=== PATIENT | male | born 1955 | race Caucasian/White ===

== ENCOUNTER 2022-09-01 09:22 | Day surgery (SDC) | payer MEDICARE, OTHER, SELFPAY ==
--- NOTE | 2022-09-01 | PATH_ITS ---
[facility] Accession Number: [id number] No. of containers..01 Tissue . 01 Material submitted: . rectum - RECTAL POLYP . 01 Diagnosis: Rectal Polyp: Tubular adenoma. MRV 09/04/2022 1454 Local . 01 Electronically signed: . Leo Haines MD, PhD, Pathologist NPI- [id number] . 01 Gross description: . RECTAL POLYP: Received in formalin is 1 fragment(s) of dickson, soft tissue measuring 0.2 x 0.2 x 0.2 cm submitted entirely in 1 cassette(s) /TRC 09/03/2022 1431 Local . 01 Pathologist provided ICD-10: D12.8 . 01 CPT . 664587 Specimen Comment: A courtesy copy of this report has been sent to [phone] Performed at: 01 [facility] [address] [place] [address], [place], [place] [id number] MD Andrew Tejada MD Phone: [phone]
[2022-09-01 10:24] VITALS: BP 139/72; PULSE 60; RESP 16; TEMP 36.4; O2SAT 98; BMI 20.7
[2022-09-01] MEDS: LACTATED RINGERS 1,000 ML 42 ML IV (10:38)
--- NOTE | 2022-09-01 11:12 | PM.HP.1 ---
History of Present Illness History of Present Illness Date Patient Seen: 09/01/22 Time Patient Seen: 11:12 Chief complaint: SDC Narrative: Patient reports a history of colon polyps. He is here for colonoscopy today. [facility] Social History household members: spouse Smoking Status: Never smoker alcohol intake: current Meds Home Medications and Allergies Home Medications Medication Instructions Recorded Confirmed Type trazodone 100 mg tablet 100 mg PO BEDTIME 09/01/22 09/01/22 History Allergies Allergy/AdvReac Type Severity Reaction Status Date / Time No Known Drug Allergies Allergy Verified 09/01/22 10:20 Review of Systems Review of Systems ROS: Yes All systems reviewed with the patient and are negative except as otherwise documented Exam Vital Signs (past 8 hours): - 09/01/22 10:24 Temperature 97.5 F L Pulse Rate 60 Respiratory Rate 16 Blood Pressure 139/72 Pulse Oximetry 98 Oxygen Delivery Method Room Air Oxygen Flow Rate 0 Oxygen Delivery Method Room Air Oxygen Flow Rate 0 Const General: cooperative HENMT Head: normal to inspection Eyes General: appearance normal, both eyes and all related structures Neck Neck: normal visual inspection Chest Chest: normal inspection of the chest Resp Effort & Inspection: normal respiratory effort Cardio Rate: regular rate GI Inspection: normal to inspection Skin General: no rashes or lesions noted Neuro General: patient alert and patient awake Extrem General: normal to inspection and no pedal edema Psych Appearance: grossly normal Assessment & Plan Assessment & Plan narrative: 67-year-old male with a personal history of colon polyps. Colonoscopy is pursued today.
--- NOTE | 2022-09-01 11:13 | PM.PREOP ---
Pre-operative Note Interval Note History & Physical reviewed/Exam performed by Physician: Yes Changes to H&P: No ASA Class (for procedural sedation): II
[2022-09-01 12:21] VITALS: BP 112/71; PULSE 49; RESP 18; TEMP 36.7; O2SAT 99
--- NOTE | 2022-09-01 12:22 | P.OP.COLON_ITS ---
Operative Date/Time/Diagnoses Date of procedure: 09/01/22 Time of procedure: 12:23 Pre-op diagnosis: Personal history of colon polyps Post-op diagnosis: same Procedure & Clinicians Study performed: Colonoscopy with cold snare polypectomy Same procedure as scheduled: Yes Indications: Personal history of colon polyps Surgeon: Herb Marks Procedure Notes SCOAP/Timeout: Done Procedure in detail: After the risks and benefits were explained, written and verbal informed consent was obtained. The patient was brought into the procedure room and placed into the left lateral decubitus position. Please see anesthesia notes for sedation details. Digital rectal examination was accomplished. The scope was introduced into the patient and advanced under direct visualization to the cecum as identified by the appendiceal orifice and ileocecal valve. The scope was slowly withdrawn to carefully examine the mucosa for any defects or lesions. Comprehensive imaging was accomplished throughout the rectum including the den king line. The colon was decompressed, the scope was then removed from the patient who tolerated the procedure well. Pediatric colonoscope Bowel prep adequate Scope withdrawal time: 11 minutes Sedation minutes: 18 Complications: none Impression: In the rectum there was a diminutive 4 mm polyp removed with cold snare. No additional significant mucosal pathology was appreciated throughout. Grade 1-2 internal hemorrhoids were noted on direct views. Endoscopic diagnosis 1. Grade 2 hemorrhoids 2. Small rectal polyp Post-procedure Plan for aftercare: 1. Await histopathology. 2. If adenomatous features are identified, repeat colonoscopy 7 years. Disposition: PACU
[2022-09-01 12:25] VITALS: BP 124/76; PULSE 47; RESP 18; O2SAT 99
[2022-09-01 12:31] VITALS: BP 122/80; PULSE 52; RESP 16; O2SAT 99
[2022-09-01 12:40] VITALS: BP 132/78; PULSE 45; RESP 16; TEMP 36.7; O2SAT 99
== END 2022-09-01 12:46 | disposition home or self-care (01) ==
PROVIDERS: PCP Family Medicine; Referring Provider Internal Medicine Gastroenterology; Visit Provider Internal Medicine Gastroenterology
PROC: 0DJD8ZZ Inspection of Lower Intestinal Tract, Via Natural or Artificial Opening Endoscopic (ICD-10-PCS; CPT 45378; principal; 2022-09-01 13:30)
DX: Z12.11 Encounter for screening for malignant neoplasm of colon (principal); Z86.010 Personal history of colon polyps; K64.1 Second degree hemorrhoids; D12.8 Benign neoplasm of rectum
CPT/HCPCS: 45385

== ENCOUNTER → 2023-05-29 11:39 | Outpatient (CLI) | payer MEDICARE, OTHER, SELFPAY ==
--- NOTE | 2023-05-29 | DI.MRI.S_ITS ---
PROCEDURE: MR CERVICAL SPINE WO CON INDICATIONS: CERVICAL PAIN TECHNIQUE: Noncontrast sagittal T1 spin echo and T2 fast spin echo, sagittal STIR, foraminal oblique sagittal T2 fast spin echo, and axial gradient echo or T2 fast spin echo through the cervical spine. COMPARISON: None. FINDINGS: Image quality: Excellent. Alignment and Curvature: There is normal bony alignment. Bone Marrow: Marrow demonstrates normal overall signal. Spinal Cord: Visualized spinal cord has normal size and signal. No cerebellar tonsillar herniation. Paraspinous Soft Tissues: No paravertebral masses. Prevertebral soft tissues are normal in thickness. C2-C3: Disc desiccation height loss. Minimal posterior disc osteophyte complex. No central canal stenosis. Facet and uncovertebral arthropathy. Mild right and no left neural foraminal stenosis. C3-C4: Disc desiccation height loss. Posterior disc osteophyte complex. Mild central canal stenosis. Facet and uncovertebral arthropathy. Moderate bilateral neural foraminal stenosis. C4-C5: Disc desiccation height loss. Posterior disc osteophyte complex. Moderate central canal stenosis. Facet and uncovertebral arthropathy. Severe bilateral neural foraminal stenosis. C5-C6: Disc desiccation height loss. Posterior disc osteophyte complex. Mild central canal stenosis. Facet and uncovertebral arthropathy. Severe bilateral neural foraminal stenosis. C6-C7: Disc desiccation height loss. Posterior disc osteophyte complex. No significant central canal stenosis. Facet and uncovertebral arthropathy. Mild bilateral neural foraminal stenosis. C7-T1: No central canal or neural foraminal stenosis. IMPRESSION: 1. Multilevel degenerative changes of the cervical spine as described above. 2. There is moderate central canal stenosis at C4-C5. Mild central canal stenosis at C3-C4 and C5-C6. 3. Severe bilateral neural foraminal stenosis at C4-C5 and C5-C6. Dictated by: Kirit Multani M.D. on 05/29/2023 at 13:15 Approved by: Kirit Multani M.D. on 05/29/2023 at 13:20
== END ==
LOC: MRI 11:42
PROVIDERS: PCP Family Medicine; Referring Provider Family Medicine; Visit Provider Family Medicine
DX: M47.22 Other spondylosis with radiculopathy, cervical region (principal); M50.10 Cervical disc disorder with radiculopathy, unspecified cervical region; M48.02 Spinal stenosis, cervical region
CPT/HCPCS: 72141

== ENCOUNTER → 2023-09-29 10:00 | Outpatient (CLI) | payer MEDICARE, OTHER, SELFPAY ==
--- NOTE | 2023-09-29 10:02 | DI.US.S_ITS ---
PROCEDURE: US SCROTUM INDICATIONS: RIGHT SCROTAL MASS TECHNIQUE: Real-time scanning was performed of the scrotum and testicles, with image documentation. Color and pulse Doppler interrogation was performed of both testicles. COMPARISON: None. FINDINGS: Right: Testicle is normal in size at 4.4 x 2.5 x 2.4 cm, and homogenous in echotexture. Epididymis is normal in overall size and morphology. Epididymal head cyst measuring 0.5 x 0.6 x 0.7 cm. Trace hydrocele with no varicocele. Overlying scrotal skin is normal in thickness. Left: Testicle is normal in size at 4.3 x 2.3 x 2.6 cm, and homogeneous in echotexture. Epididymis is normal in overall size and morphology. Trace hydrocele without varicoceles. Overlying scrotal skin is normal in thickness. Doppler: Color and pulse Doppler demonstrate normal and symmetric arterial flow in both testicles. IMPRESSION: Subcentimeter right epididymal head cyst, possibly corresponding to the right scrotal mass. Trace hydroceles. Dictated by: Marvin Shelley M.D. on 09/29/2023 at 11:58 Approved by: Marvin Shelley M.D. on 09/29/2023 at 11:59
--- NOTE | 2023-09-29 10:02 | DI.US.S_ITS ---
PROCEDURE: US ABD AORTA ANEURYSM SCREEN INDICATIONS: HISTORY NICOTINE DEPENDENCE TECHNIQUE: Real time scanning was performed of the aorta and iliac arteries, with image documentation. COMPARISON: None. FINDINGS: Aorta: Proximal aortic diameter measures 2.3 cm. Mid-aorta measures 1.7 cm. Distal aortic diameter is 1.6 cm. Iliac arteries: Right common iliac artery measures 1.1 cm. Left common iliac artery measures 1.1 cm. IMPRESSION: Negative for aneurysm. Dictated by: Lorenzo Jones M.D. on 09/29/2023 at 10:01 Approved by: Lorenzo Jones M.D. on 09/29/2023 at 10:01
--- NOTE | 2023-09-29 10:02 | DI.MRI.S_ITS ---
PROCEDURE: MR HEAD/BRAIN WO CON INDICATIONS: NICOTINE DEPENDENCE;SCROTUM MASS;Headache TECHNIQUE: Non-contrast axial T1 spin echo, axial T2 fast spin echo, sagittal and axial FLAIR, coronal T2 fast spin echo, axial gradient echo, axial diffusion and ADC through the brain. COMPARISON: None. FINDINGS: Image quality: Excellent. CSF spaces: Ventricles appear symmetric in size and shape. Basal cisterns are patent. No extra-axial fluid collections. Brain: No intracranial bleeds or mass effects. There is cerebral volume loss for age. There are periventricular and deep white matter chronic small vessel ischemic changes. Brainstem appears normal. Diffusion-weighted images show no acute infarct. No chronic ischemic insults. Normal intravascular flow voids are present. Skull and face: Calvarial bone marrow is normal in signal. Orbits are normal. Sinuses: Size there is a mucous retention cyst within the left maxillary sinus. Sinuses and mastoids are otherwise clear. IMPRESSION: To the limits of this noncontrast study, no findings of intracranial masses or mass effect can be seen. Dictated by: Lorenzo Jones M.D. on 09/29/2023 at 11:59 Approved by: Lorenzo Jones M.D. on 09/29/2023 at 12:00
== END ==
PROVIDERS: PCP Family Medicine; Referring Provider Family Medicine; Visit Provider Family Medicine
DX: R51.9 Headache, unspecified (principal); J34.1 Cyst and mucocele of nose and nasal sinus; N50.3 Cyst of epididymis; N50.89 Other specified disorders of the male genital organs; Z13.6 Encounter for screening for cardiovascular disorders; Z87.891 Personal history of nicotine dependence
CPT/HCPCS: 70551; 76706; 76870; 93975